=== PATIENT | male | born 1990 | race Caucasian/White ===

== ENCOUNTER 2020-07-10 15:41 | Emergency (ER) | payer OTHER ==
--- NOTE | 2020-07-10 16:11 | ED Physician Documentation ---
PD HPI LOWER EXT INJURY - Stated complaint Stated Complaint: RT ANKLE INJ - Chief complaint Chief Complaint: Trauma Ext - History obtained from History obtained from: Patient - History of Present Illness PD HPI LOW EXT INJURY LOCATION: Right (He hopped off a 2 foot ledge and inverted his right ankle today with mild pain but significant swelling. He is able to walk and bear weight. No other injuries.) Review of Systems Constitutional: reports: Reviewed and negative Eyes: reports: Reviewed and negative Ears: reports: Reviewed and negative Nose: reports: Reviewed and negative PD PAST MEDICAL HISTORY - Present Medications Home Medications: Ambulatory Orders Medication Instructions Recorded Confirmed Cetirizine HCl/Pseudoephedrine 1 each PO DAILY 07/10/20 07/10/20 [Zyrtec-D Tablet] - Allergies Allergies/Adverse Reactions: Allergies Allergy/AdvReac Type Severity Reaction Status Date / Time amoxicillin Allergy Emesis Verified 07/10/20 15:57 PD ED PE NORMAL - Vitals Vital signs reviewed: Yes - General General: Alert and oriented X 3, No acute distress - HEENT HEENT: PERRL, EOMI - Neck Neck: Supple, no meningeal sign, No bony TTP - Extremities Extremities: Other (Significant swelling overlying the lateral malleolus with mild tenderness of the malleolus itself more so than the ATFL. No proximal fibular tenderness. No foot tenderness.) - Neuro Neuro: Alert and oriented X 3, Normal speech Results - Vitals Vitals: Vital Signs - 24 hr 07/10/20 07/10/20 15:57 16:33 Temperature 36.4 C L 36.9 C Heart Rate 74 78 Respiratory 16 16 Rate Blood Pressure 123/76 129/81 H O2 Saturation 97 100 Oxygen O2 Source Room air - Rads (name of study) 3v R ankle Radiology: EMP read contemporaneously (NAD) Departure - Departure Disposition: Home, Self Care Clinical Impression: Right ankle sprain Qualifiers: Encounter type: initial encounter Involved ligament of ankle: anterior talofibular ligament Qualified Code(s): S93.491A - Sprain of other ligament of right ankle, initial encounter Condition: Good Record reviewed to determine appropriate education?: Yes Instructions: ED Sprain Ankle Comments: Tylenol or ibuprofen as needed for pain, elevate and ice it but you can walk and bear weight. Return for new or worsening symptoms. Recheck with your doctor in 1 to 2 weeks if not improved. Discharge Date/Time: 07/10/20 16:35
--- NOTE | 2020-07-10 16:26 | XRAY Report ---
PROCEDURE: Ankle 3 View RT INDICATIONS: injury TECHNIQUE: 3 views of the ankle were acquired. COMPARISON: None FINDINGS: Bones: No fractures or dislocations. Ankle mortise is normally aligned. No suspicious bony lesions . Soft tissues: Soft tissue swelling is seen, particularly laterally. IMPRESSION: Soft tissue swelling is seen. No findings of fracture are seen. However, if there is point tenderness (or other clinical concern fo r a fracture not seen on these plain films) then please consider a short-term follow-up plain film se sloan or CT for further evaluation. Reviewed by: Sean Keating MD on 07/10/2020 3:24 PM [facility] Approved by: Sean Keating MD on 07/10/2020 3:24 PM [facility] Station ID: [id number]
[2020-07-10 16:35] VITALS: BP 129/81
== END 2020-07-10 16:35 | disposition home or self-care (01) ==
LOC: ED 15:41
DX: S93.491A Sprain of other ligament of right ankle, initial encounter (principal); X50.1XXA Overexertion from prolonged static or awkward postures, initial encounter; Y93.39 Activity, other involving climbing, rappelling and jumping off
CPT/HCPCS: 99282; 99283